=== PATIENT | female | born 1990 | race Two or more races ===

== ENCOUNTER 2019-04-06 08:43 | Emergency (ER) | payer OTHER ==
[~2019-04-06] VITALS: Ht 162.6 cm; Wt 87.1 kg
[~2019-04-06 08:43] MED LIST: NKM
--- NOTE | 2019-04-06 08:52 | NUR ---
ED Nurse Note: PT WALKED IN TO ER TODAY FROM HOME. AOX4. PT C/O RIGHT FOOT BIG TOE PAIN, 710 X YESTERDAY AROUND 1630 AFTER HURTING IT WHILE PLAYING SOCCER. TOE APPEARS SWOLLEN BUT NO OBVIOUS DEFORMITY. CAP REFILL <3 SECONDS, CIRCULATION AND SENSATION INTACT, MUSCLE STRENGTH OF FOOT 5/5 AND GAIT STEADY. SKIN CLEAN, DRY, AND INTACT.
[2019-04-06] MEDS ORDERED: IBUPROFEN600 MG ORAL (09:32)
--- NOTE | 2019-04-06 09:37 | NUR ---
ED Nurse Note: PT LAYING PEACEFULLY IN BED IN NAD. AOX4. PRESCRIPTION AND DISCHARGE PAPERWORK EXPLAINED TO PT. PT VERBALIZES UNDERSTANDING AND ALL QUESTIONS ANSWERED. PRESCRIPTION AND DISCHARGE PAPERWORK GIVEN TO PT AND ID WRISTBAND REMOVED. PT WALKED OUT OF ER WITH STEADY GAIT AND ALL BELONGINGS.
[2019-04-06 09:39] VITALS: BP 116/72
--- NOTE | 2019-04-06 11:03 | Emergency Room Report ---
History of Present Illness General Chief Complaint: Lower Extremity Injury Source: Patient Present Illness HPI 29-year-old female presents ED for evaluation. Complaining of right big toe pain and bruising. States that she [place] the beach yesterday and kicked the ball barefoot. States she has been having persistent pain and swelling to the right big toe. Pain is dull, 6 out of 10, nonradiating. Denies any other injuries. Is able to bear weight. No other aggravating relieving factors. Denies any other associated symptoms Allergies: Coded Allergies: No Known Allergies (Unverified , 06/25/16) Patient History Past Medical History: none Past Surgical History: none Pertinent Family History: none Social History: Denies: smoking, alcohol use, drug use Last Menstrual Period: 04/02/19 Now: No Immunizations: UTD Reviewed Nursing Documentation: PMH: Agreed; PSxH: Agreed Nursing Documentation-PMH Past Medical History: No History, Except For Hx Asthma: Yes Review of Systems All Other Systems: negative except mentioned in HPI Physical Exam Vital Signs Date Time Temp Pulse Resp B/P (MAP) Pulse Ox O2 Delivery O2 Flow Rate FiO2 04/06/19 08:47 98.4 68 21 110/71 (84) 97 Room Air Sp02 EP Interpretation: reviewed, normal General Appearance: no apparent distress, alert, GCS 15, non-toxic Head: normocephalic Eyes: bilateral eye normal inspection, bilateral eye PERRL ENT: normal ENT inspection Neck: normal inspection Respiratory: normal inspection Cardiovascular #1: normal inspection Gastrointestinal: normal inspection Rectal: deferred Genitourinary: no CVA tenderness Musculoskeletal: tender - R big toe Neurologic: alert, oriented x3, responsive, motor strength/tone normal, sensory intact, speech normal Psychiatric: normal inspection Skin: normal inspection Lymphatic: normal inspection Procedures Splinting Splinting : Consent: Verbal Pre-Made Type: cast shoe Pre-Proc Neuro Vasc Exam: normal Post-Proc Neuro Vasc Exam: normal Patient Tolerated: Well Complications: None Medical Decision Making Diagnostic Impression: Primary Impression: Toe contusion Qualified Codes: S90.111A - Contusion of right great toe without damage to nail, initial encounter ER Course Hospital Course 29-year-old F presents to ED complaining of R big toe pain/bruising s/p kicked soccer ball Differential diagnoses include: Fracture, dislocation, sprain, contusion Clinical course Patient placed on stretcher. After initial history and physical, I ordered Xrays of R foot. She declined pain meds Xrays prelim read shows no acute fracture/dislocation. discussed findings with patient. Placed in cast shoe. Safe for discharge for close outpatient follow-up. Will provide referrals Diagnosis - toe contusion Stable and discharged to home with prescription for Motrin. apply ice, keep elevated. weight bear as tolerated. Followup with PMD. Return to ED if symptoms recur or worsen Other X-Ray Diagnostic Results Other X-Ray Diagnostic Results : X-Ray ordered: R foot # of Views/Limited Vs Complete: 3 View Indication: Pain EP Interpretation: Yes Interpretation: no dislocation, no soft tissue swelling, no fractures Impression: No acute disease Electronically Signed by: Electronically signed by Vincent Burns MD Last Vital Signs Date Time Temp Pulse Resp B/P (MAP) Pulse Ox O2 Delivery O2 Flow Rate FiO2 04/06/19 09:39 98.3 72 18 116/72 100 Room Air Status: improved Disposition: HOME, SELF-CARE Condition: Stable Scripts Ibuprofen* (MOTRIN*) 600 Mg Tablet 600 MG ORAL Q8H PRN for For Pain, #30 TAB 0 Refills Prov: Vincent Burns MD 04/06/19 Referrals: NON PHYSICIAN (PCP) [facility] Open 24 hour /7 days a week by Appointment Only [address] [facility] [address] Patient Instructions: Contusion, [id number] Vincent Burns MD Apr 06, 2019 11:03
--- NOTE | 2019-04-06 11:25 | Diagnostic Imaging Report ---
Indication: Foot Pain Comparison: None Findings: 3 views of the right foot were obtained. No acute fractures, malalignment, erosions or periostitis are identified. Soft tissues are unremarkable. Impression: No acute findings.
== END 2019-04-06 09:40 | disposition home or self-care (01) ==
LOC: EMR 09:20
DX: S90.111A Contusion of right great toe without damage to nail, initial encounter (principal); W21.02XA Struck by soccer ball, initial encounter; Y92.9 Unspecified place or not applicable
CPT/HCPCS: 29515; 99283